=== PATIENT | female | born 1965 | race Caucasian/White ===

== ENCOUNTER 2022-08-04 08:46 | Emergency (ER) | payer OTHER ==
[2022-08-04] MEDS ORDERED: HYDROCODONE/APAP 7.5/325 MG TAB ONE (09:07)
[2022-08-04] MEDS ORDERED: KETOROLAC 30 MG/ML INJ ONE (09:07)
--- NOTE | 2022-08-04 09:55 | EDPHYS ---
Physician Documentation [facility] Name: Anna Oliver Age: 57 yrs Sex: Female : 1965 Arrival Date: 08/04/2022 Time: 08:46 Bed 20 Private MD: ED Physician Edwin Hartmann HPI: 08/04 09:04 This 57 yrs old Female presents to ER via Ambulatory with complaints of Fall Injury. snw 09:04 Details of fall: The patient fell from an upright position, slipped on ice on floor. snw Onset: The symptoms/episode began/occurred suddenly, last night. Associated injuries: The patient sustained lateral aspect of right knee, decreased range of motion, painful injury, swelling. Severity of symptoms: At their worst the symptoms were moderate. The patient has not experienced similar symptoms in the past. It is unknown whether or not the patient has recently seen a physician. Historical: - Allergies: 08:53 No Known Allergies; hb - Home Meds: 08:53 None [Active]; hb - PMHx: 08:53 None; hb - PSHx: 08:53 None; hb - Immunization history:: Adult Immunizations up to date. - Social history:: Smoking status: Patient reports the use of cigarette tobacco products. ROS: 08:59 Constitutional: Negative for fever, chills, and weight loss, Eyes: Negative for injury, snw pain, redness, and discharge, ENT: Negative for injury, pain, and discharge, Neck: Negative for injury, pain, and swelling, Cardiovascular: Negative for chest pain, palpitations, and edema, Respiratory: Negative for shortness of breath, cough, wheezing, and pleuritic chest pain, Abdomen/GI: Negative for abdominal pain, nausea, vomiting, diarrhea, and constipation, Back: Negative for injury and pain, : Negative for injury, bleeding, discharge, and swelling, Skin: Negative for injury, rash, and discoloration, Neuro: Negative for headache, weakness, numbness, tingling, and seizure, Psych: Negative for depression, anxiety, suicide ideation, homicidal ideation, and hallucinations. 08:59 MS/extremity: Positive for injury or acute deformity, decreased range of motion, pain, of the lateral aspect of right knee. Exam: 08:59 Constitutional: This is a well developed, well nourished patient who is awake, alert, snw and in no acute distress. Head/Face: Normocephalic, atraumatic. Eyes: Pupils equal round and reactive to light, extra-ocular motions intact. Lids and lashes normal. Conjunctiva and sclera are non-icteric and not injected. Cornea within normal limits. Periorbital areas with no swelling, redness, or edema. ENT: Nares patent. No nasal discharge, no septal abnormalities noted. Tympanic membranes are normal and external auditory canals are clear. Oropharynx with no redness, swelling, or masses, exudates, or evidence of obstruction, uvula midline. Mucous membranes moist. Neck: Trachea midline, no thyromegaly or masses palpated, and no cervical lymphadenopathy. Supple, full range of motion without nuchal rigidity, or vertebral point tenderness. No Meningismus. Chest/axilla: Normal chest wall appearance and motion. Nontender with no deformity. No lesions are appreciated. Cardiovascular: Regular rate and rhythm with a normal S1 and S2. No gallops, murmurs, or rubs. Normal PMI, no JVD. No pulse deficits. Respiratory: Lungs have equal breath sounds bilaterally, clear to auscultation and percussion. No rales, rhonchi or wheezes noted. No increased work of breathing, no retractions or nasal flaring. Abdomen/GI: Soft, non-tender, with normal bowel sounds. No distension or tympany. No guarding or rebound. No evidence of tenderness throughout. Back: No spinal tenderness. No costovertebral tenderness. Full range of motion. Skin: Warm, dry with normal turgor. Normal color with no rashes, no lesions, and no evidence of cellulitis. Neuro: Awake and alert, GCS 15, oriented to person, place, time, and situation. Cranial nerves II-XII grossly intact. Motor strength 5/5 in all extremities. Sensory grossly intact. Cerebellar exam normal. Normal gait. Psych: Awake, alert, with orientation to person, place and time. Behavior, mood, and affect are within normal limits. 08:59 Musculoskeletal/extremity: Extremities: grossly normal except: noted in the lateral aspect of right knee: decreased ROM, pain, swelling, tenderness, ROM: limited active range of motion due to pain, limited passive range of motion due to pain, in the lateral aspect of right knee, Circulation is intact in all extremities. Sensation intact. Vital Signs: 08:52 BP 143 / 81; Pulse 72; Resp 16; Temp 98.4(TE); Pulse Ox 100% on R/A; Weight 72.57 kg; hb Height 5 ft. 5 in. ; Pain 7/10; 08:52 Body Mass Index 26.62 (72.57 kg, 165.1 cm) hb 08:52 Pain Scale: Adult hb MDM: 08:50 Patient medically screened. snw 09:52 Differential diagnosis: contusion, fracture, sprain, strain. Data reviewed: vital snw signs, nurses notes, radiologic studies, plain films. I considered the following discharge prescriptions or medication management in the emergency department Medications were administered in the Emergency Department. See MAR. Independent interpretation of the following test(s) in the Emergency Department X-Ray: My interpretation is no fx, patellar spurring, . Counseling: I had a detailed discussion with the patient and/or guardian regarding: the historical points, exam findings, and any diagnostic results supporting the discharge/admit diagnosis, the presence of at least one elevated blood pressure reading (>120/80) during this emergency department visit, radiology results, the need for outpatient follow up, for definitive care, to return to the emergency department if symptoms worsen or persist or if there are any questions or concerns that arise at home. Response to treatment: the patient's symptoms have mildly improved after treatment. Special discussion: I have referred the patient to see his PCP for further evaluation of high blood pressure. Based on the history and exam findings, there is no indication for further emergent testing or inpatient evaluation. I discussed with the patient/guardian the need to see the orthopedic surgeon for further evaluation of the symptoms. I discussed with the patient/guardian the need to see the primary care provider for further evaluation of the symptoms. 08/04 08:58 Order name: Knee Right 3 View XRAY snw 08/04 08:58 Order name: Knee Immobilizer; Complete Time: 09:05 snw 08/04 08:58 Order name: Ice pack; Complete Time: 09:05 snw Administered Medications: 09:09 Drug: Ketorolac IM 30 mg Route: IM; Site: right deltoid; kc6 10:08 Follow up: Response: No adverse reaction; Pain is decreased; RASS: Alert and Calm (0) kc6 09:09 Drug: Hydrocodone-Acetaminophen PO (7.5 mg-325 mg) 1 tabs Route: PO; kc6 10:08 Follow up: Response: No adverse reaction; Pain is decreased; RASS: Alert and Calm (0) kc6 Disposition: 13:25 Co-signature as Attending Physician, Edwin Hartmann DO I was immediately available on-site ms3 in the Emergency Department for consultation in the care of the patient. Disposition Summary: 08/04/22 09:54 Discharge Ordered Location: Home snw Condition: Stable snw Diagnosis - Unspecified internal derangement of right knee snw - Patellar Spur snw Followup: snw - With: Emergency Department - When: As needed - Reason: Worsening of condition Followup: snw - With: Private Physician - When: 2 - 3 days - Reason: Recheck today's complaints, Continuance of care, Re-evaluation by your physician Discharge Instructions: - Discharge Summary Sheet snw - How to Use a Knee Immobilizer snw - Knee Sprain, Adult snw - Acute Knee Pain, Adult snw - Lateral Collateral Knee Ligament Sprain snw Forms: - Work release form snw - Medication Reconciliation Form snw - Thank You Letter snw - Antibiotic Education snw - Prescription Opioid Use snw Prescriptions: - Mobic 7.5 mg Oral Tablet - take 1 tablet by ORAL route once daily take with food; 20 tablet; Refills: 0, snw Product Selection Permitted - Tramadol 50 mg Oral Tablet - take 1 tablet by ORAL route every 8 hours as needed; 12 tablet; Refills: 0, snw Product Selection Permitted Signatures: Dispatcher [employer] Tamra Roman, DARA-C RAILROAD SHOP INSPECTOR-Csnw Rosanne Clarke, RN RN Edwin Hartmann DO DO ms3 Adrianna Rudolph RN RN kc6
--- NOTE | 2022-08-04 09:55 | ER ---
Nurse's Notes [facility] Name: Anna Oliver Age: 57 yrs Sex: Female : 1965 Arrival Date: 08/04/2022 Time: 08:46 Bed 20 Private MD: Diagnosis: Unspecified internal derangement of right knee;Patellar Spur Presentation: 08/04 08:52 Chief complaint: Right knee pain 7/10 after she slipped and fell on ice last night. hb Coronavirus screen: At this time, the client does not indicate any symptoms associated with coronavirus-19. Ebola Screen: No symptoms or risks identified at this time. Initial Sepsis Screen: Does the patient meet any 2 criteria? No. Patient's initial sepsis screen is negative. Does the patient have a suspected source of infection? No. Patient's initial sepsis screen is negative. Risk Assessment: Do you want to hurt yourself or someone else? Patient reports no desire to harm self or others. Onset of symptoms was August 03, 2022. 08:52 Method Of Arrival: Ambulatory hb 08:52 Acuity: JENNIFER 4 hb Historical: - Allergies: 08:53 No Known Allergies; hb - Home Meds: 08:53 None [Active]; hb - PMHx: 08:53 None; hb - PSHx: 08:53 None; hb - Immunization history:: Adult Immunizations up to date. - Social history:: Smoking status: Patient reports the use of cigarette tobacco products. Screenin:53 [facility] ED Fall Risk Assessment (Adult) History of falling in the last 3 months, kc6 including since admission Yes- single mechanical fall (1 pt) Confusion or Disorientation No (0 pts) Intoxicated or Sedated No (0 pts) Impaired Gait No (0 pts) Mobility Assist Device Used No (0 pt) Altered Elimination No (0 pt) Score/Fall Risk Level 0 - 2 = Low Risk Oriented to surroundings, Maintained a safe environment, Educated pt \T\ family on fall prevention, incl call for assistance when getting out of bed, Assessed \T\ reinforced patient's understanding of fall precautions, Hourly rounding (assess needs \T\ fall precautionary measures) done. Abuse screen: Denies threats or abuse. Denies injuries from another. Nutritional screening: No deficits noted. Tuberculosis screening: No symptoms or risk factors identified. Assessment: 08:52 General: Appears in no apparent distress. uncomfortable, Behavior is calm, cooperative, kc6 appropriate for age. Pain: Complains of pain in right knee Pain does not radiate. Pain currently is 8 out of 10 on a pain scale. Pain began 1 day ago. Is continuous, Alleviated by rest, Aggravated by increased activity, repositioning, weight bearing, Noted to be resistant to movement, Also complains of no other associated symptoms. Neuro: Lema Agitation-Sedation Scale (RASS): 0 - Alert and Calm Level of Consciousness is awake, alert, obeys commands, Oriented to person, place, time, situation, Appropriate for age. Cardiovascular: Capillary refill < 3 seconds. Respiratory: Airway is patent Trachea midline Respiratory effort is even, unlabored, Respiratory pattern is regular, symmetrical. GI: No signs and/or symptoms were reported involving the gastrointestinal system. : No signs and/or symptoms were reported regarding the genitourinary system. EENT: No signs and/or symptoms were reported regarding the EENT system. Derm: No signs and/or symptoms reported regarding the dermatologic system. Skin is intact, Skin is pink, warm \T\ dry. Musculoskeletal: No signs and/or symptoms reported regarding the musculoskeletal system. Circulation, motion, and sensation intact. Capillary refill < 3 seconds, Range of motion: intact in all extremities. 09:52 Reassessment: Patient appears in no apparent distress at this time. No changes from kc6 previously documented assessment. Patient and/or family updated on plan of care and expected duration. Pain level reassessed. Patient is alert, oriented x 3, equal unlabored respirations, skin warm/dry/pink. Vital Signs: 08:52 BP 143 / 81; Pulse 72; Resp 16; Temp 98.4(TE); Pulse Ox 100% on R/A; Weight 72.57 kg; hb Height 5 ft. 5 in. ; Pain 7/10; 08:52 Body Mass Index 26.62 (72.57 kg, 165.1 cm) hb 08:52 Pain Scale: Adult hb ED Course: 08:48 Patient arrived in ED. ts1 08:50 Tamra Vargas FNP-C is [facility]. snw 08:50 Edwin Hartmann DO is Attending Physician. snw 08:52 Adrianna Rudolph RN is Primary Nurse. kc6 08:53 Triage completed. hb 08:53 Arm band placed on. hb 08:54 Patient has correct armband on for positive identification. Bed in low position. Call kc6 light in reach. Side rails up X 1. Adult w/ patient. 09:43 Knee Right 3 View XRAY In Process Unspecified. EDMS 10:08 No provider procedures requiring assistance completed. Patient did not have IV access kc6 during this emergency room visit. Administered Medications: 09:09 Drug: Ketorolac IM 30 mg Route: IM; Site: right deltoid; kc6 10:08 Follow up: Response: No adverse reaction; Pain is decreased; RASS: Alert and Calm (0) kc6 09:09 Drug: Hydrocodone-Acetaminophen PO (7.5 mg-325 mg) 1 tabs Route: PO; kc6 10:08 Follow up: Response: No adverse reaction; Pain is decreased; RASS: Alert and Calm (0) kc6 Medication: 10:08 VIS not applicable for this client. kc6 Outcome: 09:54 Discharge ordered by . snw 10:08 Discharged to home ambulatory, with significant other. kc6 10:08 Condition: stable 10:08 Discharge instructions given to patient, Instructed on discharge instructions, follow up and referral plans. medication usage, Demonstrated understanding of instructions, follow-up care, medications, Prescriptions given X 1. 10:09 Patient left the ED. kc6 Signatures: Dispatcher [employer] EDMS Tamra Vargas, DJANGO DEVELOPER-C DJANGO DEVELOPER-Csnw Rosanne Clarke RN RN hb Campbell, Kaitlyn, RN RN kc6 Simpson, Tanya, PAS PAS ts1 Corrections: (The following items were deleted from the chart) 08:54 08:52 Resp 16bpm; Pulse Ox 100% RA; Temp 98.4F Temporal; 72.57 kg; Height 5 ft. 5 in.; hb BMI: 26.6; Pain 7/10, Adult; hb
[2022-08-04 10:13] VITALS: BP 143/81; TEMP 98.4; O2SAT 100
--- NOTE | 2022-08-04 10:28 | RAD REPORT ---
EXAM DESCRIPTION: RAD - Knee Right 3 View - 08/04/2022 9:41 am CLINICAL HISTORY: Pain;Radiculopathy COMPARISON: No comparisons TECHNIQUE: Right knee, 3 views. FINDINGS: No fracture, dislocation or periosteal reaction.Small joint effusion seen. No joint space narrowing. Enthesopathy at the quadriceps and patellar tendon attachments. No soft tissue abnormality . Clinical concerns for internal derangement or occult bony injury could be further assessed with MR im aging. IMPRESSION: No acute osseous abnormality. Enthesopathy at the quadriceps and patellar tendon attachm ents. Small joint effusion.
== END 2022-08-04 10:09 | disposition home or self-care (01) ==
LOC: ER 08:46
DX: M23.91 Unspecified internal derangement of right knee (principal); M76.891 Other specified enthesopathies of right lower limb, excluding foot
CPT/HCPCS: 96372; 99284